=== PATIENT | female | born 1995 | race Caucasian/White ===

== ENCOUNTER 2017-04-29 19:35 | Emergency (ER) | payer MEDICAID, OTHER ==
[~2017-04-29] VITALS: Ht 162.6 cm; Wt 72.0 kg
[2017-04-29 19:41] VITALS: Ht 162.6 cm; Wt 72.0 kg
--- NOTE | 2017-04-29 20:10 | ERD ---
ER Documentation Chief Complaint Date/Time DATE: 04/29/17 TIME: 20:03 Chief Complaint chest pain w/ sob on and off x 1 week HPI 21-year-old female presents in emergency department for complaints of mid chest pain for one week, on and off shortness of breath, described the pain as intermittent pain, sharp pain, as 6/10 scale, not better or worse with anything. Patient denies any fever or chills. Patient denies any cough. Patient denies any syncopal episode. Patient denies any palpitations or irregular heartbeat. Patient denies any dysuria and exertion or dyspnea on lying down. ROS All systems reviewed and are negative except as per history of present illness. Medications Home Meds Reported Medications [none] Unknown Strength No Conflict Check 04/29/17 Allergies Allergies: Coded Allergies: No Known Allergy (Unverified , 04/29/17) PMhx/Soc Medical and Surgical Hx: pt denies Medical Hx, pt denies Surgical Hx History of Surgery: No Anesthesia Reaction: No Hx Neurological Disorder: No Hx Respiratory Disorders: No Hx Cardiac Disorders: No Hx Psychiatric Problems: No Hx Miscellaneous Medical Probl: No Hx Alcohol Use: No Hx Substance Use: No Hx Tobacco Use: No Smoking Status: Never smoker FmHx Family History: No coronary disease, No diabetes, No other Physical Exam Vitals Vital Signs Date Time Temp Pulse Resp B/P Pulse Ox O2 Delivery O2 Flow Rate FiO2 04/29/17 19:41 96.7 76 20 123/67 100 Physical Exam GENERAL: The patient is well developed and appropriate for usual state of health, in no apparent distress. CHEST: Clear to auscultation bilaterally. There are no rales, wheezes or rhonchi. HEART: Regular rate and rhythm. No murmurs, clicks, rubs or gallops. No S3 or S4. ABDOMEN: Soft, nontender and nondistended. Good bowel sounds. No rebound or guarding. No gross peritonitis. No gross organomegaly or masses. No Manzo sign or McBurney point tenderness. BACK: No midline or flank tenderness. EXTREMITIES: Equal pulses bilaterally. There is no peripheral clubbing, cyanosis or edema. No focal swelling or erythema. Full range of motion. Grossly neurovascularly intact. NEURO: Alert and oriented. Cranial nerves 2-12 intact. Motor strength in all 4 extremities with 5/5 strength. Sensation grossly intact. Normal speech and gait. SKIN: There is no apparent rash or petechia. The skin is warm and dry. HEMATOLOGIC AND LYMPHATIC: There is no evidence of excessive bruising or lymphedema. No gross cervical, axillary, or inguinal lymphadenopathy. Results 24 hrs EKG was done, read by me and is normal sinus rhythm at a rate of 76, normal axis , there is no ST changes or changes in the EKG that indicates any cardiac emergencies at this time. Patient's EKG was also reviewed by Dr. Olson. Impression: no acute findings on EKG PROCEDURE: Portable chest x-ray. CLINICAL INDICATION: Chest pain, shortness of breath. TECHNIQUE: Portable AP view of the chest. COMPARISON: None. FINDINGS: No pulmonary edema or conolidation is identified. The cardiac silhouette is magnified. No pleural effusion is seen. There is no pneumothorax. IMPRESSION: 1. No evidence of acute cardiopulmonary disease. RPTAT: HTAR .Mickey Jung MD, MD Date Time Electronically viewed and signed by .Mickey Jung MD, MD on 04/29/2017 21:10 .R/ CC: LEON LEWIS [employer] Procedures/MDM Medical Decision Making: Patient's chest pain most likely a musculoskeletal pain , possible chest wall strain or costochondritis.There is low suspicion for cardiopulmonary emergencies at this time. Patient has low risk factors. EKG is normal, there is no changes in the EKG that indicates cardiac emergencies. Chest X-ray does not show cardiopulmonary emergencies at this time. There is low suspicion for aortic aneurysm, myocardial infarction, pneumothorax, pleural effusion, pulmonary embolism, or any other cardiopulmonary emergencies at this time. Prescription was given for ibuprofen, is advised to follow up with primary care doctor in 2 days for reevaluation of symptoms. Patient was advised to return to emergency department for any worsening symptoms. Dispostion: Home. Stable Departure Diagnosis: Primary Impression: Atypical chest pain Condition: Stable Patient Instructions: Chest Wall Contusion (/Toddler) LEON LEWIS NP Apr 29, 2017 20:10
--- NOTE | 2017-04-29 21:11 | RADRPT ---
PROCEDURE: Portable chest x-ray. CLINICAL INDICATION: Chest pain, shortness of breath. TECHNIQUE: Portable AP view of the chest. COMPARISON: None. FINDINGS: No pulmonary edema or conolidation is identified. The cardiac silhouette is magnified. No pleural effusion is seen. There is no pneumothorax. IMPRESSION: 1. No evidence of acute cardiopulmonary disease. RPTAT: HTAR .Mickey Jung MD, MD Date Time Electronically viewed and signed by .Mickey Jung MD, on 04/29/2017 21:10 .R/
[2017-04-29] MEDS ORDERED: IBUP-1542 PO (21:17)
[2017-04-29 22:11] VITALS: BP 118/67; PULSE 68; RESP 16; TEMP 98.3
== END 2017-04-29 22:13 | disposition home or self-care (01) ==
LOC: FTE 19:35
DX: R07.89 Other chest pain (principal)
CPT/HCPCS: 71010; 93005; Z7502